=== PATIENT | male | born 1955 | race Caucasian/White ===

== ENCOUNTER 2021-06-24 18:03 | Inpatient (IN) | payer OTHER ==
[~2021-06-24] VITALS: Ht 188 cm; Wt 71.3 kg
--- NOTE | 2021-06-24 18:12 | NUR ---
Pt BIB [facility]-Pt c/o epigastric pain x1 week, described as mild. Pt reports he was driving after work today "and I felt weird, I tried to pull my car to the side of the road and I woke up on the other side of the road." + syncopal episode, pt bradycardic in the 30s, reports his baseline is a resting heart rate of 45-50. Pt speaking in full sentences, resp even and unlabored. Continuous heart, oxygen and BP monitors applied, all safety measures observed.
[2021-06-24] MEDS ORDERED: SODIUM CHLORIDE FLUSH 10ML SYR IVF ONE (18:30)
--- NOTE | 2021-06-24 18:32 | NUR ---
RECEIVED REPORT FROM VANDANA MEEK. PT RESTING ON LILIBETHRUTH. MAXN. MONITORS REMAIN IN PLACE. NADN. VSS. WARM BLANKET PROVIDED.
[2021-06-24 18:41] LABS: BASOPHILS % (AUTO) 1 % (0-1); EOSINOPHILS % (AUTO) 2 % (1-7); LYMPHOCYTES % (AUTO) 27 % (22-44); MEAN CORPUSCULAR HGB CONC 33.7 g/dL (33.2-36.2); MEAN PLATELET VOLUME 8.6 fL (7.4-10.4); MONOCYTES % (AUTO) 7 % (2-9); NEUTROPHILS % (AUTO) 64 % (42-75); PLATELET COUNT 166 x10^3/uL (130-400); RED BLOOD COUNT 3.63 x10^6/uL (4.38-5.82); RED CELL DISTRIBUTION WIDTH 12.9 % (9.4-14.8)
[2021-06-24 18:48] LABS: ALBUMIN 2.9 g/dL (3.4-5.0); ANION GAP 6 mmol/L (5-15); CALCIUM 7.8 mg/dL (8.5-10.1); CHLORIDE 111 mmol/L (98-107)
[2021-06-24 18:53] LABS: ALANINE AMINOTRANSFERASE 27 U/L (12-78); ALKALINE PHOSPHATASE 43 U/L (45-117); BILIRUBIN,TOTAL 0.7 mg/dL (0.2-1.0); CREATININE 0.78 mg/dL (0.7-1.3); TOTAL PROTEIN 5.5 g/dL (6.4-8.2); TROPONIN I < 0.015 ng/mL (0.000-0.045)
[2021-06-24] MEDS ORDERED: FAMOTIDINE 20 MG/2 ML ONE (18:58)
[2021-06-24] MEDS ORDERED: ONDANSETRON 2MG/ML, 2ML ONE (18:58)
--- NOTE | 2021-06-24 18:59 | NUR ---
REPORT GIVEN TO VANDANA MAGANA.
[2021-06-24] MEDS ORDERED: FAMOTIDINE 20 MG/2 ML IVPush ONE (19:00)
[2021-06-24] MEDS ORDERED: ONDANSETRON 2MG/ML, 2ML IVPush ONE (19:00)
--- NOTE | 2021-06-24 19:13 | NUR ---
ASSUMED CARE AT THIS TIME. UPON ASSESSMENT PT THROWING UP AND DIAPHORETIC. PT VOMITED X1 TIME. HEART RATE 80BPM. PT REPROTS IMPROVEMENT OF SYMPTOMS. PT HEART RATE BRADYCARDIC AT 50BPM. NOTIFIED PROVIDER. DEFIB PADS PLACED ON PT. REPEAT EKG TAKEN. WILL CONTINUE TO MONITOR
--- NOTE | 2021-06-24 19:21 | NUR ---
PT MOVED FROM ED ROOM 19 TO TRAUMA 1. BEDSIDE REPORT GIVEN TO ISELA ROSS.
--- NOTE | 2021-06-24 19:36 | NUR ---
FIRST ENCOUNTER WITH PATIENT: PATIENT AND UPDATED ON PLAN OF CARE. DISCUSSED PLAN OF CARE WITH PATIENT. PATIENT IS AWARE THAT CT WILL BE COMPLETED. PATIENT'S VITAL SIGNS ARE STABLE FOR PATIENT. DISCUSSED POSSIBLE CAUSES AND POSSIBLE ENVIRONMENTAL COMPLICATIONS THAT COULD HAVE CAUSED SYNCOPAL EPISODE. PATIENT DENIES ANY MEDICAL HISTORY. STATED THAT HE STARTED TAKING PEPCID LAST WEEK DUE TO "UPSET STOMACH". STATED THAT HE DOES NOT NORMALLY TAKE THIS MEDICATION, TOOK IT ABOUT AN HOUR PRIOR TO HAVING THE SYNCOPAL EPISODE. VSS. CALL LIGHT WITHIN REACH, BED IN LOWEST LOCKED POSITION, SIDE RAILS X 2 UP. AT BEDSIDE. GOWN CHANGED, BLANKETS AND PILLOWS PROVIDED. NO NOTED ADDITIONAL NEEDS AT THIS TIME. WILL CONTINUE TO MONITOR.
--- NOTE | 2021-06-24 19:47 | NUR ---
PT TO CT VIA [facility] WITH SPOOL WORKER.
[2021-06-24] MEDS ORDERED: OMNIPAQUE 350 MG/ML, 100ML BOTTLE ONE (20:05)
--- NOTE | 2021-06-24 20:07 | NUR ---
PATIENT BACK FROM CT.
--- NOTE | 2021-06-24 20:52 | NUR ---
PATIENT UPDATED ON PLAN OF CARE. ASKED FOR PROTONIX FOR STOMACH PAIN.
[2021-06-24] MEDS ORDERED: PANTOPRAZOLE 40 MG IV IVPush ONE (21:00)
[2021-06-24] MEDS ORDERED: PANTOPRAZOLE 80 MG in SODIUM CHLORIDE 0.9% 100 ML IV SCH (21:00)
[2021-06-24] MEDS ORDERED: SODIUM CHLORIDE 0.9% 1,000ML IVBOLUS ONE (21:00)
--- NOTE | 2021-06-24 21:13 | NUR ---
MD NUNEZ NOTIFIED PATIENT OF CT RESULTS. SECOND IV PLACED. REPEAT LABS SENT TO LAB. COVID SWAB COLLECTED AND SENT. PATIENT TOLERATED POORLY. PATIENT UPDATED ON PLAN OF CARE. AT BEDSIDE DURING UPDATED. VSS. CALL LIGHT WITHIN REACH, BED IN LOWEST LOCKED POSITION.
--- NOTE | 2021-06-24 21:22 | NUR ---
PATIENT'S CLOTHING REMOVED, PREPPED FOR SURGERY. FAMILY AT BEDSIDE AWARE. PATIENT VERBALIZED UNDERSTANDING OF PROCESS AND PLAN OF CARE. PATIENT TOLERATING INFROMATION AND PLAN OF CARE WELL.
[2021-06-24] MEDS ORDERED: PANTOPRAZOLE 40 MG IV ONE (21:24)
[2021-06-24 21:40] LABS: BASOPHILS % (AUTO) 0 % (0-1); EOSINOPHILS % (AUTO) 0 % (1-7); LYMPHOCYTES % (AUTO) 6 % (22-44); MEAN CORPUSCULAR HEMOGLOBIN 31.9 pg (27.5-34.5); MEAN CORPUSCULAR HGB CONC 33.6 g/dL (33.2-36.2); MEAN PLATELET VOLUME 8.9 fL (7.4-10.4); MONOCYTES % (AUTO) 5 % (2-9); NEUTROPHILS % (AUTO) 88 % (42-75); PLATELET COUNT 176 x10^3/uL (130-400); RED BLOOD COUNT 3.73 x10^6/uL (4.38-5.82); RED CELL DISTRIBUTION WIDTH 12.5 % (9.4-14.8)
[2021-06-24 21:50] LABS: INTERNATIONAL NORMALIZED RATIO 1.06 (0.93-1.1); PROTHROMBIN TIME 11.3 Seconds (9.6-11.5)
[2021-06-24 21:54] LABS: PARTIAL THROMBOPLASTIN TIME < 23 Seconds (25-31)
[2021-06-24] MEDS ORDERED: PIPERACILLIN/TAZO 3.375 GM in DEXTROSE 5% 50 ML IVPB ONE (22:00)
--- NOTE | 2021-06-24 22:16 | NUR ---
PATIENT AND FAMILY UPDATED ON PLAN OF CARE. NO NOTED NEEDS AT THIS TIME. VSS. WILL CONTINUE TO MONITOR.
--- NOTE | 2021-06-24 22:16 | NUR ---
BLOOD CULTURES X 2 DRAWN AT 2200/2210
--- NOTE | 2021-06-24 22:34 | NUR ---
SPOKE WITH RN IN SURGERY. PATIENT AND FAMILY UPDATED ON PLAN OF CARE.
[2021-06-24] MEDS ORDERED: SUCCINYLCHOLINE 20 MG/ML, 10ML ONE (22:57)
[2021-06-24] MEDS ORDERED: ROCURONIUM 10 MG/ML,10ML ONE (22:57)
[2021-06-24] MEDS ORDERED: CEFAZOLIN 1,000 MG ONE (22:57)
[2021-06-24] MEDS ORDERED: FENTANYL PF 250 MCG/5ML ONE (22:58)
[2021-06-24] MEDS ORDERED: MIDAZOLAM 1 MG/ML, 2ML ONE (22:58)
[2021-06-24] MEDS ORDERED: HYDROmorphone 2 MG/ML, 1ML IVPush PRN (23:00)
[2021-06-24] MEDS ORDERED: CEFTRIAXONE 1,000 MG in DEXTROSE 5% 50 ML IVPB SCH (23:00)
[2021-06-24] MEDS ORDERED: hydrALAzine 20 MG/ML, 1ML IVPush PRN (23:00)
[2021-06-24] MEDS ORDERED: BISACODYL 10 MG SUPP PR PRN (23:00)
[2021-06-24] MEDS ORDERED: EPINEPHRINE 1 MG/ML, 1ML ONE (23:28)
[2021-06-24] MEDS ORDERED: BUPIVACAINE/PF 0.5% ONE (23:28)
[2021-06-24] MEDS ORDERED: OXYcodone 5 MG/5 ML ORAL.SOL UDC PO PRN (23:30)
[2021-06-24] MEDS ORDERED: FENTANYL PF 100 MCG/2ML IV PRN (23:30)
[2021-06-24] MEDS ORDERED: PROMETHAZINE 25 MG/ML, 1ML IVPush PRN (23:30)
[2021-06-24] MEDS ORDERED: MEPERIDINE/PF 25MG/0.5ML IVPush PRN (23:30)
[2021-06-24] MEDS ORDERED: EPHEDRINE 50 MG/ML, 1ML IVPush PRN (23:30)
[2021-06-24] MEDS ORDERED: ONDANSETRON 2MG/ML, 2ML IVPush PRN (23:30)
[2021-06-24] MEDS ORDERED: morphine SULFATE 10 MG/ML, 1ML IVPush PRN (23:30)
[2021-06-24] MEDS ORDERED: DIPHENHYDRAMINE 50 MG/ML, 1ML IVPush PRN (23:30)
[2021-06-24] MEDS ORDERED: LABETALOL 5MG/ML, 20ML IV PRN (23:30)
[2021-06-24] MEDS ORDERED: EPHEDRINE 50 MG/ML, 1ML IM PRN (23:30)
[2021-06-24] MEDS ORDERED: DIAZEPAM 5 MG/ML, 2ML IVPush PRN (23:30)
[2021-06-24] MEDS ORDERED: MEPERIDINE/PF 25MG/ML,1ML ONE (23:59)
[2021-06-25] VITALS (33 sets, daily range): BP systolic 102–133; BP diastolic 58–79
[2021-06-25] MEDS ORDERED: FENTANYL PF 100 MCG/2ML ONE ×2 (00:08→01:24)
[2021-06-25] MEDS ORDERED: HYDROmorphone 2 MG/ML, 1ML ONE (00:22)
[2021-06-25] MEDS: HYDROmorphone 1 MG/ML, 1ML INJ IVPush PRN ×2 (00:31→00:36)
[2021-06-25] MEDS ORDERED: VISIPAQUE 320 MG/ML, 150ML BOTTLE ONE (01:00)
[2021-06-25] MEDS ORDERED: VISIPAQUE 320MG/ML, 50ML BOTTLE ONE (01:00)
[2021-06-25] MEDS ORDERED: LIDOCAINE 1%, 10ML ONE (01:08)
[2021-06-25] MEDS ORDERED: NALOXONE 1 MG/ML, 2ML ONE (01:25)
[2021-06-25] MEDS ORDERED: FLUMAZENIL 0.1 MG/1 ML, 5ML ONE (01:25)
[2021-06-25] MEDS ORDERED: MIDAZOLAM 1 MG/ML, 5ML ONE (01:25)
[2021-06-25 04:15] LABS: BASOPHILS % (AUTO) 0 % (0-1); EOSINOPHILS % (AUTO) 0 % (1-7); LYMPHOCYTES % (AUTO) 3 % (22-44); MEAN CORPUSCULAR HEMOGLOBIN 32.8 pg (27.5-34.5); MEAN CORPUSCULAR HGB CONC 34.7 g/dL (33.2-36.2); MEAN PLATELET VOLUME 8.9 fL (7.4-10.4); MONOCYTES % (AUTO) 5 % (2-9); NEUTROPHILS % (AUTO) 92 % (42-75); PLATELET COUNT 147 x10^3/uL (130-400); RED BLOOD COUNT 3.04 x10^6/uL (4.38-5.82); RED CELL DISTRIBUTION WIDTH 12.9 % (9.4-14.8)
[2021-06-25 04:23] LABS: ANION GAP 8 mmol/L (5-15); CALCIUM 7.9 mg/dL (8.5-10.1); CHLORIDE 107 mmol/L (98-107); CREATININE 0.62 mg/dL (0.7-1.3)
[2021-06-25] MEDS: morphine SULFATE 10 MG/ML, 1ML IVPush PRN ×4 (08:11→19:21)
[2021-06-25] MEDS: PANTOPRAZOLE 40 MG IV IVPush SCH ×2 (08:50→20:49)
[2021-06-25] MEDS ORDERED: PANTOPRAZOLE 40 MG IV IVPush SCH (09:00)
[2021-06-25] MEDS: LACTATED RINGERS 1,000 ML IV SCH (13:59)
[2021-06-26] MEDS ORDERED: MORPHINE SULFATE 4 MG/ML, 1ML ONE ×2 (00:50→05:37)
[2021-06-26] MEDS: morphine SULFATE 10 MG/ML, 1ML IVPush PRN ×4 (00:53→16:53)
[2021-06-26] MEDS: LACTATED RINGERS 1,000 ML IV SCH ×3 (01:30→22:27)
[2021-06-26] MEDS: CEFTRIAXONE 1,000 MG in DEXTROSE 5% 50 ML IVPB SCH (02:14)
[2021-06-26] MEDS: ONDANSETRON 2MG/ML, 2ML IVPush PRN ×3 (02:14→23:09)
[2021-06-26] MEDS ORDERED: SODIUM CHLORIDE 0.9%, 500ML IVBOLUS ONE (03:00)
[2021-06-26 04:44] LABS: BASOPHILS % (AUTO) 0 % (0-1); EOSINOPHILS % (AUTO) 0 % (1-7); LYMPHOCYTES % (AUTO) 8 % (22-44); MEAN CORPUSCULAR HEMOGLOBIN 32.9 pg (27.5-34.5); MEAN CORPUSCULAR HGB CONC 34.8 g/dL (33.2-36.2); MEAN PLATELET VOLUME 8.6 fL (7.4-10.4); MONOCYTES % (AUTO) 12 % (2-9); NEUTROPHILS % (AUTO) 80 % (42-75); PLATELET COUNT 133 x10^3/uL (130-400); RED BLOOD COUNT 2.65 x10^6/uL (4.38-5.82); RED CELL DISTRIBUTION WIDTH 12.4 % (9.4-14.8)
[2021-06-26 05:07] LABS: ALANINE AMINOTRANSFERASE 26 U/L (12-78); ALBUMIN 2.6 g/dL (3.4-5.0); ALKALINE PHOSPHATASE 37 U/L (45-117); BILIRUBIN,TOTAL 0.7 mg/dL (0.2-1.0); CALCIUM 8.2 mg/dL (8.5-10.1); CREATININE 0.63 mg/dL (0.7-1.3); TOTAL PROTEIN 5.4 g/dL (6.4-8.2)
[2021-06-26 05:15] LABS: ANION GAP 6 mmol/L (5-15); CHLORIDE 107 mmol/L (98-107)
[2021-06-26] MEDS: PANTOPRAZOLE 40 MG IV IVPush SCH ×2 (09:24→20:35)
[2021-06-26] MEDS ORDERED: OMNIPAQUE 350 MG/ML, 100ML BOTTLE ONE (11:05)
[2021-06-26] MEDS ORDERED: PROMETHAZINE 25 MG/ML, 1ML IM PRN (17:00)
[2021-06-26 20:32] VITALS: BP 152/74
[2021-06-27] VITALS (13 sets, daily range): BP systolic 13–139; BP diastolic 68–84
[2021-06-27] MEDS: CEFTRIAXONE 1,000 MG in DEXTROSE 5% 50 ML IVPB SCH (02:36)
[2021-06-27] MEDS ORDERED: ACETAMINOPHEN 500 MG TABLET PO PRN (03:00)
[2021-06-27 05:32] LABS: ANION GAP 3 mmol/L (5-15); CALCIUM 8.3 mg/dL (8.5-10.1); CHLORIDE 108 mmol/L (98-107); CREATININE 0.63 mg/dL (0.7-1.3)
[2021-06-27 05:37] LABS: BASOPHILS % (AUTO) 0 % (0-1); EOSINOPHILS % (AUTO) 3 % (1-7); LYMPHOCYTES % (AUTO) 16 % (22-44); MEAN CORPUSCULAR HEMOGLOBIN 32.7 pg (27.5-34.5); MEAN CORPUSCULAR HGB CONC 34.6 g/dL (33.2-36.2); MEAN PLATELET VOLUME 8.7 fL (7.4-10.4); MONOCYTES % (AUTO) 11 % (2-9); NEUTROPHILS % (AUTO) 70 % (42-75); PLATELET COUNT 128 x10^3/uL (130-400); RED BLOOD COUNT 2.35 x10^6/uL (4.38-5.82); RED CELL DISTRIBUTION WIDTH 12.8 % (9.4-14.8)
[2021-06-27] MEDS: PANTOPRAZOLE 40 MG IV IVPush SCH ×2 (07:37→19:37)
[2021-06-27] MEDS ORDERED: POTASSIUM CHLORIDE 40 MEQ in SODIUM CHLORIDE 0.9% 500 ML IV ONE (09:00)
[2021-06-27] MEDS ORDERED: POLYETHYLENE GLYCOL 17 GM PACKET PO PRN (12:00)
[2021-06-27] MEDS: LACTATED RINGERS 1,000 ML IV SCH (16:57)
[2021-06-27] MEDS: morphine SULFATE 10 MG/ML, 1ML IVPush PRN (19:37)
[2021-06-28 00:18] VITALS: BP 147/83
[2021-06-28] MEDS: CEFTRIAXONE 1,000 MG in DEXTROSE 5% 50 ML IVPB SCH (02:37)
[2021-06-28] MEDS: ONDANSETRON 2MG/ML, 2ML IVPush PRN ×2 (03:03→11:20)
[2021-06-28 05:54] LABS: BASOPHILS % (AUTO) 0 % (0-1); EOSINOPHILS % (AUTO) 4 % (1-7); LYMPHOCYTES % (AUTO) 16 % (22-44); MEAN CORPUSCULAR HEMOGLOBIN 32.1 pg (27.5-34.5); MEAN CORPUSCULAR HGB CONC 34.8 g/dL (33.2-36.2); MEAN PLATELET VOLUME 8.7 fL (7.4-10.4); MONOCYTES % (AUTO) 11 % (2-9); NEUTROPHILS % (AUTO) 69 % (42-75); PLATELET COUNT 118 x10^3/uL (130-400); RED BLOOD COUNT 2.88 x10^6/uL (4.38-5.82); RED CELL DISTRIBUTION WIDTH 14.3 % (9.4-14.8)
[2021-06-28 06:05] LABS: ALANINE AMINOTRANSFERASE 36 U/L (12-78); ALBUMIN 2.3 g/dL (3.4-5.0); ANION GAP 4 mmol/L (5-15); CALCIUM 8.2 mg/dL (8.5-10.1); CHLORIDE 109 mmol/L (98-107); CREATININE 0.57 mg/dL (0.7-1.3)
[2021-06-28 06:08] LABS: ALKALINE PHOSPHATASE 43 U/L (45-117); BILIRUBIN,TOTAL 0.9 mg/dL (0.2-1.0); TOTAL PROTEIN 5.1 g/dL (6.4-8.2)
[2021-06-28] MEDS: LACTATED RINGERS 1,000 ML IV SCH ×2 (06:16→20:39)
[2021-06-28 06:19] VITALS: BP 147/83
[2021-06-28 06:55] VITALS: BP 145/82
[2021-06-28] MEDS: PANTOPRAZOLE 40 MG IV IVPush SCH ×2 (08:39→20:39)
[2021-06-28] MEDS ORDERED: OMNIPAQUE 350 MG/ML, 100ML BOTTLE ONE (09:30)
[2021-06-28] MEDS ORDERED: PROPOFOL 10 MG/ML, 50ML ONE (14:00)
[2021-06-28] MEDS ORDERED: PROPOFOL 50 ML ONE (14:55)
[2021-06-28] MEDS ORDERED: EPHEDRINE 50 MG/ML, 1ML IVPush PRN (16:00)
[2021-06-28] MEDS ORDERED: LABETALOL 5MG/ML, 20ML IV PRN (16:00)
[2021-06-28] MEDS ORDERED: MIDAZOLAM 1 MG/ML, 2ML IV PRN (16:00)
[2021-06-28] MEDS ORDERED: ONDANSETRON 2MG/ML, 2ML IVPush PRN (16:00)
[2021-06-28] MEDS ORDERED: PROMETHAZINE 25 MG/ML, 1ML IVPush PRN (16:00)
[2021-06-28] MEDS ORDERED: FENTANYL PF 100 MCG/2ML IV PRN (16:00)
[2021-06-28] MEDS ORDERED: HYDROmorphone 1 MG/ML, 1ML INJ IVPush PRN (16:00)
[2021-06-28] MEDS ORDERED: ALBUTEROL SULFATE 2.5 MG/3 ML NPPB PRN (16:00)
[2021-06-28] MEDS ORDERED: DIPHENHYDRAMINE 50 MG/ML, 1ML IVPush PRN ×2 (16:00)
[2021-06-28] MEDS ORDERED: OXYcodone 5 MG/5 ML ORAL.SOL UDC PO PRN (16:00)
[2021-06-28] MEDS ORDERED: MEPERIDINE/PF 25MG/0.5ML IVPush PRN (16:00)
[2021-06-28] MEDS ORDERED: DIAZEPAM 5 MG/ML, 2ML IVPush PRN (16:00)
[2021-06-28] MEDS ORDERED: hydrALAzine 20 MG/ML, 1ML IV PRN (16:00)
[2021-06-28] MEDS ORDERED: LORazepam 2 MG/ML, 1ML IVPush PRN (16:00)
[2021-06-28] MEDS ORDERED: PROMETHAZINE 12.5 MG SUPP PR PRN (16:00)
[2021-06-28 17:18] VITALS: BP 121/72
[2021-06-28] MEDS: morphine SULFATE 10 MG/ML, 1ML IVPush PRN (18:33)
[2021-06-28] MEDS ORDERED: SENNOSIDES 8.6 MG TABLET PO PRN (19:00)
[2021-06-28] MEDS ORDERED: BISACODYL 10 MG SUPP PR PRN (19:00)
[2021-06-28 19:37] VITALS: BP 120/70
[2021-06-28] MEDS: POLYETHYLENE GLYCOL 17 GM PACKET NG SCH (20:39)
[2021-06-29] MEDS: CEFTRIAXONE 1,000 MG in DEXTROSE 5% 50 ML IVPB SCH (02:31)
[2021-06-29 02:34] VITALS: BP 112/71
[2021-06-29] MEDS: ONDANSETRON 2MG/ML, 2ML IVPush PRN (04:27)
[2021-06-29 05:48] LABS: BASOPHILS % (AUTO) 1 % (0-1); EOSINOPHILS % (AUTO) 4 % (1-7); LYMPHOCYTES % (AUTO) 22 % (22-44); MEAN CORPUSCULAR HGB CONC 34.5 g/dL (33.2-36.2); MEAN PLATELET VOLUME 8.3 fL (7.4-10.4); MONOCYTES % (AUTO) 14 % (2-9); NEUTROPHILS % (AUTO) 60 % (42-75); PLATELET COUNT 131 x10^3/uL (130-400); RED BLOOD COUNT 2.83 x10^6/uL (4.38-5.82)
[2021-06-29 05:54] LABS: ANION GAP 4 mmol/L (5-15); CALCIUM 8.2 mg/dL (8.5-10.1); CHLORIDE 108 mmol/L (98-107); CREATININE 0.65 mg/dL (0.7-1.3)
[2021-06-29] MEDS: PANTOPRAZOLE 40MG TABLET PO SCH (06:05)
[2021-06-29 07:55] VITALS: BP 114/70
[2021-06-29] MEDS: LACTATED RINGERS 1,000 ML IV SCH ×2 (09:00→22:20)
[2021-06-29] MEDS: POLYETHYLENE GLYCOL 17 GM PACKET NG SCH ×2 (09:15→19:40)
[2021-06-29 12:28] VITALS: BP 110/73
[2021-06-29] MEDS: morphine SULFATE 10 MG/ML, 1ML IVPush PRN ×2 (18:10→19:38)
[2021-06-29 19:35] VITALS: BP 154/80
[2021-06-29 21:01] VITALS: BP 150/87
[2021-06-30 01:13] VITALS: BP 152/58
[2021-06-30] MEDS: ONDANSETRON 2MG/ML, 2ML IVPush PRN (03:13)
[2021-06-30] MEDS: CEFTRIAXONE 1,000 MG in DEXTROSE 5% 50 ML IVPB SCH ×2 (03:13→19:12)
[2021-06-30 04:26] LABS: BASOPHILS % (AUTO) 1 % (0-1); EOSINOPHILS % (AUTO) 4 % (1-7); LYMPHOCYTES % (AUTO) 20 % (22-44); MEAN CORPUSCULAR HEMOGLOBIN 32.5 pg (27.5-34.5); MEAN PLATELET VOLUME 8.6 fL (7.4-10.4); MONOCYTES % (AUTO) 13 % (2-9); NEUTROPHILS % (AUTO) 63 % (42-75); PLATELET COUNT 144 x10^3/uL (130-400); RED BLOOD COUNT 2.95 x10^6/uL (4.38-5.82); RED CELL DISTRIBUTION WIDTH 13.9 % (9.4-14.8)
[2021-06-30 04:36] LABS: ALBUMIN 2.3 g/dL (3.4-5.0); ANION GAP 4 mmol/L (5-15); CALCIUM 8.1 mg/dL (8.5-10.1); CHLORIDE 106 mmol/L (98-107)
[2021-06-30 04:39] LABS: ALANINE AMINOTRANSFERASE 302 U/L (12-78); ALKALINE PHOSPHATASE 109 U/L (45-117); BILIRUBIN,TOTAL 1.2 mg/dL (0.2-1.0); CREATININE 0.63 mg/dL (0.7-1.3); TOTAL PROTEIN 5.3 g/dL (6.4-8.2)
[2021-06-30] MEDS: PANTOPRAZOLE 40MG TABLET PO SCH (06:05)
[2021-06-30 07:56] VITALS: BP 117/77
[2021-06-30 08:40] LABS: BILIRUBIN, DIRECT 0.4 mg/dL (0.1-0.2)
[2021-06-30 10:16] LABS: ALBUMIN 2.7 g/dL (3.4-5.0); BILIRUBIN, DIRECT 0.3 mg/dL (0.1-0.2)
[2021-06-30 10:20] LABS: BILIRUBIN,INDIRECT 1.1 mg/dL (0.0-2.0); BILIRUBIN,TOTAL 1.4 mg/dL (0.2-1.0); TOTAL PROTEIN 5.7 g/dL (6.4-8.2)
[2021-06-30] MEDS: POLYETHYLENE GLYCOL 17 GM PACKET NG SCH ×2 (10:30→20:12)
[2021-06-30] MEDS: LACTATED RINGERS 1,000 ML IV SCH (11:40)
[2021-06-30 13:01] VITALS: BP 114/74
[2021-06-30 20:51] VITALS: BP 124/79
[2021-06-30] MEDS: morphine SULFATE 10 MG/ML, 1ML IVPush PRN (23:29)
[2021-07-01] MEDS: LACTATED RINGERS 1,000 ML IV SCH ×2 (01:00→10:50)
[2021-07-01 01:21] VITALS: BP 116/73
[2021-07-01 05:43] LABS: BASOPHILS % (AUTO) 1 % (0-1); EOSINOPHILS % (AUTO) 5 % (1-7); LYMPHOCYTES % (AUTO) 19 % (22-44); MEAN CORPUSCULAR HEMOGLOBIN 32.4 pg (27.5-34.5); MEAN CORPUSCULAR HGB CONC 35.2 g/dL (33.2-36.2); MEAN PLATELET VOLUME 8.3 fL (7.4-10.4); MONOCYTES % (AUTO) 12 % (2-9); NEUTROPHILS % (AUTO) 64 % (42-75); PLATELET COUNT 173 x10^3/uL (130-400); RED BLOOD COUNT 3.17 x10^6/uL (4.38-5.82); RED CELL DISTRIBUTION WIDTH 13.7 % (9.4-14.8)
[2021-07-01 05:46] LABS: CHLORIDE 106 mmol/L (98-107)
[2021-07-01 06:03] LABS: ALANINE AMINOTRANSFERASE 250 U/L (12-78); ALBUMIN 2.5 g/dL (3.4-5.0); ALKALINE PHOSPHATASE 132 U/L (45-117); ANION GAP 5 mmol/L (5-15); BILIRUBIN,TOTAL 1.3 mg/dL (0.2-1.0); CALCIUM 8.4 mg/dL (8.5-10.1); CREATININE 0.64 mg/dL (0.7-1.3); TOTAL PROTEIN 5.7 g/dL (6.4-8.2)
[2021-07-01] MEDS: PANTOPRAZOLE 40MG TABLET PO SCH (06:14)
[2021-07-01 07:50] VITALS: BP 125/77
[2021-07-01] MEDS: POLYETHYLENE GLYCOL 17 GM PACKET NG SCH ×2 (08:32→21:36)
[2021-07-01] MEDS: morphine SULFATE 10 MG/ML, 1ML IVPush PRN (12:49)
[2021-07-01 12:55] VITALS: BP 113/68
[2021-07-01] MEDS ORDERED: morphine SULFATE 10 MG/ML, 1ML IVPush PRN (14:30)
[2021-07-01 20:08] VITALS: BP 113/68
[2021-07-02 02:10] VITALS: BP 113/62
[2021-07-02] MEDS: PANTOPRAZOLE 40MG TABLET PO SCH (06:28)
[2021-07-02 07:32] VITALS: BP 128/81
[2021-07-02 07:58] LABS: BASOPHILS % (AUTO) 1 % (0-1); EOSINOPHILS % (AUTO) 5 % (1-7); LYMPHOCYTES % (AUTO) 21 % (22-44); MEAN CORPUSCULAR HEMOGLOBIN 31.4 pg (27.5-34.5); MEAN CORPUSCULAR HGB CONC 33.5 g/dL (33.2-36.2); MEAN PLATELET VOLUME 8.2 fL (7.4-10.4); MONOCYTES % (AUTO) 11 % (2-9); NEUTROPHILS % (AUTO) 62 % (42-75); PLATELET COUNT 285 x10^3/uL (130-400); RED BLOOD COUNT 4.11 x10^6/uL (4.38-5.82); RED CELL DISTRIBUTION WIDTH 14.2 % (9.4-14.8)
[2021-07-02 08:10] LABS: ALANINE AMINOTRANSFERASE 227 U/L (12-78); ALBUMIN 3.3 g/dL (3.4-5.0); ANION GAP 5 mmol/L (5-15); CALCIUM 9.1 mg/dL (8.5-10.1); CHLORIDE 107 mmol/L (98-107)
[2021-07-02 08:12] LABS: ALKALINE PHOSPHATASE 155 U/L (45-117); BILIRUBIN,TOTAL 1.3 mg/dL (0.2-1.0); CREATININE 0.74 mg/dL (0.7-1.3); TOTAL PROTEIN 7.4 g/dL (6.4-8.2)
[2021-07-02] MEDS: POLYETHYLENE GLYCOL 17 GM PACKET NG SCH (08:14)
[2021-07-02 12:17] VITALS: BP 132/80
== END 2021-07-02 20:20 | disposition short-term general hospital (02) | DRG 356 ==
LOC: ED 22:38 → EDIP 23:08 → CCU 06-25 02:21 → 4NE 06-26 16:42
PROVIDERS: ADMIT Internal Medicine; ATTEND Internal Medicine
PROC: B41BZZZ Fluoroscopy of Other Intra-Abdominal Arteries (ICD-10-PCS; 2021-06-24)
PROC: 0W9G00Z Drainage of Peritoneal Cavity with Drainage Device, Open Approach (ICD-10-PCS; principal; 2021-06-24 23:00)
PROC: 0DJ08ZZ Inspection of Upper Intestinal Tract, Via Natural or Artificial Opening Endoscopic (ICD-10-PCS; 2021-06-25)
PROC: 0DJD8ZZ Inspection of Lower Intestinal Tract, Via Natural or Artificial Opening Endoscopic (ICD-10-PCS; 2021-06-25)
PROC: 30233N1 Transfusion of Nonautologous Red Blood Cells into Peripheral Vein, Percutaneous Approach (ICD-10-PCS; 2021-06-27)
PROC: 0DB68ZX Excision of Stomach, Via Natural or Artificial Opening Endoscopic, Diagnostic (ICD-10-PCS; 2021-06-28)
PROC: BD42ZZZ Ultrasonography of Stomach (ICD-10-PCS; 2021-06-28)
PROC: 0DB98ZX Excision of Duodenum, Via Natural or Artificial Opening Endoscopic, Diagnostic (ICD-10-PCS; 2021-06-28)
PROC: 0D9 Gastrointestinal System, Drainage (ICD-10-PCS; 2021-06-28)
DX: K26.2 Acute duodenal ulcer with both hemorrhage and perforation (principal); K65.9 Peritonitis, unspecified; K66.1 Hemoperitoneum; D62 Acute posthemorrhagic anemia; S36.420A Contusion of duodenum, initial encounter; D18.03 Hemangioma of intra-abdominal structures; R00.1 Bradycardia, unspecified; R33.9 Retention of urine, unspecified; R55 Syncope and collapse; R73.9 Hyperglycemia, unspecified; R74.01 Elevation of levels of liver transaminase levels; K25.5 Chronic or unspecified gastric ulcer with perforation; Z20.822 Contact with and (suspected) exposure to COVID-19; Y93.89 Activity, other specified; Y92.89 Other specified places as the place of occurrence of the external cause; Y99.8 Other external cause status
CPT/HCPCS: 36415; 87338; 96374; 96375; 99291; J3490; S0020; 36245; 36246; 36247; 71045; 74174; 74177; 74181; 75726; 76700; 80048; 80053; 80076; 82248; 82378; 83735; 84100; 84484; 85014; 85018; 85025; 85610; 85730; 86301; 86850; 86900; 86923; 87040; 87081; 87635; 88172; 88173; 88305; 88341; 88342; 93005; 93975; C1729; G0378; J0171; J0690; J0696; J1170; J2175; J2250; J2405; J2543; J2704; J3010; J3480; Q9967; C1751; C1760; C1769; C9113; J0330; J2270; J2310; J7030; J7040; J7120; P9016